=== PATIENT | male | born 1985 | race Caucasian/White ===

== ENCOUNTER 2018-01-04 10:15 | Emergency (ER) | payer MEDICAID ==
[~2018-01-04] VITALS: Ht 167.6 cm; Wt 64.4 kg
[2018-01-04 10:34] VITALS: BP 151/73
[2018-01-04] MEDS ORDERED: IBUPROFEN 400 MG TAB PO ONE (14:30)
[2018-01-04 15:16] VITALS: BP 132/78
== END 2018-01-04 15:16 | disposition home or self-care (01) ==
LOC: MED 10:15
DX: M94.0 Chondrocostal junction syndrome [Tietze] (principal)
CPT/HCPCS: 71045; 93005; 99284